=== PATIENT | female | born 1970 | race Asian ===

== ENCOUNTER 2016-05-01 13:05 | Emergency (ER) | payer OTHER ==
[~2016-05-01] VITALS: Ht 165.1 cm; Wt 66.5 kg
[2016-05-01 13:10] VITALS: TEMP 36.6; Ht 165.1 cm; Wt 66.5 kg
--- NOTE | 2016-05-01 14:49 | DIAGNOSTIC IMAGING REPORT ---
LEFT HUMERUS MIN 2 VIEWS ROUTINE CLINICAL HISTORY: Left upper extremity pain and swelling COMPARISON: None. DISCUSSION: No fractures or dislocations are visualized. No destructive lesions are evident. IMPRESSION: No bony abnormalities identified. Electronically signed by: Marcelo Kapadia M.D. 05/01/2016 2:48 PM Dictated Date/Time: 05/01/2016 2:48 PM
--- NOTE | 2016-05-01 16:22 | EMERGENCY ROOM VISIT NOTE ---
History First contact with patient: 13:20 Chief Complaint: ARM PAIN Stated Complaint: R ARM/HAND SWELLING History of Present Illness The patient is a 46 year old female who presents to the Emergency Department by private vehicle for evaluation of her LEFT shoulder pain and swelling. She reports that she noticed swelling to the LEFT forearm over the past 2 days. She reports that she developed pain to the LEFT-sided shoulder yesterday. She had some sort of traditional massage like therapy performed to the LEFT upper extremity. Since then she has had some bruising to the LEFT shoulder. She reports some mild discomfort to the LEFT shoulder rating her pain a 1/10. She denies any chest pain, palpitations, shortness of breath, pleuritic pain, nausea , or vomiting. She denies any trauma to the shoulder or extremity. She reports no history of blood clots or bleeding disorders otherwise. Review of Systems A complete 10-point Review of Systems was discussed with the patient, with pertinent positives and negatives listed in the History of Present Illness. All remaining Review of Systems questions can be considered negative unless otherwise specified. Social History Smoking Status: Never Smoker Smokeless Tobacco Use: No Housing Status: lives with family Current/Historical Medications No Active Prescriptions or Reported Meds Allergies Coded Allergies: No Known Allergies (Unverified , 05/01/16) Physical Exam Vital Signs Date Time Temp Pulse Resp B/P Pulse Ox O2 Delivery O2 Flow Rate FiO2 05/01/16 16:23 84 16 132/91 97 Room Air 05/01/16 13:10 36.6 84 18 128/77 97 Room Air Pain Rating (0-10): 1 Physical Exam VITAL SIGNS - Vital signs and nursing notes were reviewed. GENERAL - 46-year-old female appearing her stated age and in noticeable discomfort throughout the exam. NECK - FROM of the cervical spine. no spinous process or paraspinal muscle tenderness to palpation. No nuchal rigidity. LUNGS - Chest wall symmetric without accessory muscle use, intercostals retractions, or central cyanosis. Normal vesicular breath sounds CTA B/L. No wheezes, rales, or rhonchi appreciated. CARDIAC - RRR with S1/S2. No murmur, rubs, or gallops appreciated. MUSCULOSKELETAL - Active ROM of the LEFT shoulder and upper extremity was assessed as full in all directions. +5/5 strength appreciated bilaterally. Mild edema noted to the LEFT forearm. No palpable cords. No erythema, petechia , or palpable purpura appreciated. EMPTY CAN TEST: No pain or weakness against examiner's force. NEUROLOGIC - SENSORY: Spinothalamic tract was found to be intact with ability to discriminate sharp versus dull sensation at the level of the LEFT side of the neck down to the fingertips. No sensory deficits of the dorsal column were appreciated utilizing light touch for evaluation. VASCULAR - Capillary refill was brisk. +3/5 radial pulse palpated. Medical Decision & Procedures ER Provider Diagnostic Interpretation: Radiological imaging and reports were reviewed by myself. Radiologist's Interpretation as follows: LEFT HUMERUS MIN 2 VIEWS ROUTINE CLINICAL HISTORY: Left upper extremity pain and swelling COMPARISON: None. DISCUSSION: No fractures or dislocations are visualized. No destructive lesions are evident. IMPRESSION: No bony abnormalities identified. VENOUS DOPPLER LEFT ARM UPPER EXTREMITY VENOUS DOPPLER HISTORY: Pain. Edema. LUE pain/swelling COMPARISON STUDY: None. FINDINGS: The internal jugular vein is patent. There is normal flow within the subclavian vein. There is normal flow and compressibility within the left axillary, basilic, brachial, radial, ulnar, and visualized cephalic veins. IMPRESSION: No DVT within the upper extremity. ED Course Patient was seen and evaluated by myself. X-ray and ultrasound of the LEFT upper extremity were obtained. Imaging results as above. Imaging results were reviewed with the patient and family member who acknowledges understanding. Patient and family member were educated on worrisome symptoms for return visit to the emergency department. Patient discharged home in good condition. Medical Decision Given the patient's presentation and stated complaints, I did elect to perform the above-mentioned workup. The patient presents today with pain to the LEFT shoulder and swelling to the upper extremity. She has no chest pain, palpitations, shortness of breath. She has some mild edema to the LEFT forearm. There is no erythema or concern for infection. Ultrasound shows no DVT. X-ray of the LEFT shoulder demonstrates no acute bony structure abnormalities. Patient with follow-up with her primary care provider from today 's visit. She will continue conservative measures at home. She will return for any changing or worsening symptoms. Patient discharged home in good condition. In the evaluation and treatment of this patient, the following differential diagnoses were considered: Shoulder Contusion, Shoulder Fracture, Shoulder Dislocation, Thoracic Outlet Syndrome, Adhesive Capsulitis, Rotator Cuff Tear, Proximal Clavicle Head Fracture, Apical Pneumonia, Pneumothorax, Hemothorax, or TB. Impression Primary Impression: Left upper extremity swelling Departure Information Dispostion Home / Self-Care Condition GOOD Prescriptions No Active Prescriptions or Reported Meds Referrals No Doctor, Assigned (PCP) Patient Instructions [facility] Additional Instructions You've been seen in the emergency department today for swelling to the LEFT upper extremity. Follow-up with your primary care provider from today's visit. Return for any changing or worsening symptoms.
[2016-05-01 16:23] VITALS: BP 132/91; PULSE 84; O2SAT 97
--- NOTE | 2016-05-01 16:30 | DIAGNOSTIC IMAGING REPORT ---
VENOUS DOPPLER LEFT ARM UPPER EXTREMITY VENOUS DOPPLER HISTORY: Pain. Edema. LUE pain/swelling COMPARISON STUDY: None. FINDINGS: The internal jugular vein is patent. There is normal flow within the subclavian vein. There is normal flow and compressibility within the left axillary, basilic, brachial, radial, ulnar, and visualized cephalic veins. IMPRESSION: No DVT within the upper extremity. Electronically signed by: Jamar Patricia M.D. 05/01/2016 4:29 PM Dictated Date/Time: 05/01/2016 4:28 PM
== END 2016-05-01 16:50 | disposition home or self-care (01) ==
LOC: C.EDB 13:07 → C.EDD 16:50
DX: M79.89 Other specified soft tissue disorders (principal)